=== PATIENT | male | born 1990 | race Caucasian/White ===

== ENCOUNTER 2020-03-03 11:42 | Emergency (ER) | payer SELFPAY ==
[~2020-03-03] VITALS: Ht 170.2 cm; Wt 90.9 kg
[2020-03-03 11:56] VITALS: TEMP 97.1
[2020-03-03 14:15] VITALS: BP 140/82; PULSE 90
== END 2020-03-03 14:15 | disposition home or self-care (01) ==
LOC: COL.ER 11:42
DX: S61.210A Laceration without foreign body of right index finger without damage to nail, initial encounter (principal); W20.8XXA Other cause of strike by thrown, projected or falling object, initial encounter